=== PATIENT | male | born 1945 | race Caucasian/White ===

== ENCOUNTER 2016-08-25 06:37 | Day surgery (SDC) | payer OTHER ==
--- NOTE | 2016-08-24 13:16 | MH ---
cc: NYASIA JO ROHIT K. M.D. GOTTLIEB, DANIEL BARTHOLOMEW, BETH A. MD DATE OF ADMISSION: 08/25/2016 ADMISSION DIAGNOSIS Low back pain with a lumbar stenosis and neurogenic claudication symptoms. HISTORY OF PRESENT ILLNESS This is a 70-year-old male who presented to us for an evaluation of leg pain. He states he has chronic back pain since the . He states in 2000 he fell off a ladder someone knocked out from under him. He had a fusion in 2003 and states that the screws had to be removed four months later. He states he was doing well up until about a year ago. He states since then he cannot walk 50 feet without his legs feeling like they are going to give out on him. He states the pain starts in the first toe bilaterally, moves up the teixeira, lateral thighs to the hips and back. He states he cannot stand for 10-15 minutes before he has to rest. He states his whole back hurts, but he can live with this type pain but the legs are the most bothersome to him. He denies any paresthesias in the lower extremities. He denies any bowel or bladder incontinence. PAST MEDICAL HISTORY Significant for - 1. Diabetes mellitus. 2. COPD. 3. Sleep apnea with C-PAP use. 4. Coronary artery disease. 5. Pacemaker placement. 6. Hypertension 7. Prostate cancer. 8. Kidney disease. 9. Depression. CURRENT MEDICATIONS 1. Lisinopril 40 mg p.o. daily. 2. Hydralazine 50 mg p.o. daily. 3. Metoprolol 100 mg p.o. daily. 4. Atorvastatin 40 mg p.o. daily. 5. Sertraline 50 mg p.o. daily. 6. Symbicort 160. 7. Ventolin inhaler. 8. Fluticasone. 9. Aspirin 325 mg. ALLERGIES She has no known drug allergies. FAMILY HISTORY He states his mother and father are both . SOCIAL HISTORY He does not have children. He lives alone. He smokes five to six cigarettes a day. He drinks very rarely alcohol. REVIEW OF SYSTEMS CONSTITUTIONAL: He denies any fever or chills. EARS, NOSE AND THROAT: No pharyngitis, exudates or bloody drainage from his nose. CARDIOVASCULAR: No chest pain or palpitations. RESPIRATORY: No cough. Positive for shortness of breath. GENITOURINARY: No dysuria or hematuria. MUSCULOSKELETAL: Positive for low back pain and leg pain with difficult walking. SKIN: No rashes or pruritus. NEUROLOGIC: No difficulty with speech. Positive for difficulty with memory. GASTROINTESTINAL: No nausea, vomiting or abdominal pain. PSYCHIATRIC: No anxiety. Positive for depression symptoms. ENDOCRINE: No polyuria or polydipsia. HEMATOLOGIC: Positive for bruising but no bleeding tendencies. PHYSICAL EXAMINATION HEAD: Normocephalic, atraumatic. NECK: Supple. No carotid bruits heard on auscultation. LUNGS: Clear to auscultation bilaterally. HEART: Regular rate and rhythm. Normal S1, S2. ABDOMEN: Soft, nontender. Positive bowel sounds. SKIN: No cyanosis or erythema. He has a well-healed anterior neck incision. MUSCULOSKELETAL: He has 5/5 strength in the lower extremities. He ambulates without any assistive device. He has stiffness getting up from a sitting position and starting his ambulatory stride. NEUROLOGIC: He is awake, alert and oriented. Cranial nerves II through XII appear grossly intact. His speech is full and comprehension is good. Sensation is intact in the upper and lower extremities. He has brisk reflexes in the lower extremities. DATA REVIEWED A plain CT scan of the lumbar spine from 06/30/2016: He has L3/L4 and L4/L5 allograft interbody spacer which does not appear to have fused and has associated pseudoarthrosis. There is removed pedicle screw defects also noted. He has multilevel facet arthropathy along with degenerative scoliosis. He has a heavily calcified aorta also. IMPRESSION A 70-year-old male with a chronic history of low back pain with associated severe neurogenic claudication symptoms. He cannot walk more than 50 feet without experiencing severe pain and cramps and then subsequent subjective weakness in his legs. His symptoms do improve if he rests for 5 minutes each time. He has had extensive lower extremity revascularization procedures including stents he informs us and his vascular surgeon does not feel that his symptoms are related to vascular claudication. He has a history of anterior cervical fusion 20 years ago and has a failed two-level lumbar fusion at the L3/L4 and L4/L5 level with subsequent instrumentation removal. PLAN We have recommended a complete spine myelogram with post-myelogram CT to further evaluate for spinal stenosis and associated degenerative changes given that he cannot have an MRI scan because of the cardiac pacemaker. The patient will subsequently follow up with us for further discussion upon the treatment options and recommendations. The patient agrees with the treatment plan and he was therefore scheduled accordingly. Dictated by: Robert Paris PA-C MD LEN Thakkar/RICCARDO /12:49 PM /1:02 PM
[~2016-08-25] VITALS: Ht 172.7 cm; Wt 103.6 kg
[~2016-08-25 06:37] MED LIST: ASPI1TAB69 PO; ATOR40TA16 PO; FLUT50SP EACH NARE; HYDR50TA15 PO; LISI40TA PO; METO100T9 PO; SERT-132 PO; SYMB160A INH; VENTAER INH
[2016-08-25 07:08] VITALS: BP 150/79; PULSE 66; RESP 20; TEMP 97.8; O2SAT 90
[2016-08-25] MEDS ORDERED: LACTATED RINGER'S 1000 ML INJ 1,000 ML IV SCH ×2 (08:00→10:42)
[2016-08-25] MEDS ORDERED: DIAZEPAM 5 MG TAB PO SCH (08:00)
[2016-08-25 08:49] LABS: AUTOMATED NEUTROPHIL # 8.2 TH/MM3 (1.8-7.7); BASOPHIL # 0.1 TH/MM3 (0-0.2); BASOPHIL % 0.6 % (0.0-2.0); EOSINOPHIL # 0.3 TH/MM3 (0-0.4); EOSINOPHIL % 3.1 % (0.0-4.0); HEMATOCRIT 43.4 % (39.0-51.0); HEMO FLAGS DIFF FINAL; LYMPH % 9.8 % (9.0-44.0); MEAN CELL VOLUME 88.3 FL (80.0-100.0); MEAN CORPUSCULAR HEMOGLOBIN 29.8 PG (27.0-34.0); MEAN CORPUSCULAR HGB CONC 33.7 % (32.0-36.0); MONO % 8.9 % (0.0-8.0); NEUT % 77.6 % (16.0-70.0); PLATELET COUNT 142 TH/MM3 (150-450); RED BLOOD COUNT 4.91 MIL/MM3 (4.50-5.90); RED CELL DISTRIBUTION WIDTH 15.5 % (11.6-17.2); WHITE BLOOD COUNT 10.5 TH/MM3 (4.0-11.0)
[2016-08-25 08:57] LABS: APTT (PATIENT) 28.9 SEC (24.3-30.1); PROTHROMBIN TIME - PATIENT 10.8 SEC (9.8-11.6)
[2016-08-25 09:06] LABS: BICARBONATE 28.8 MEQ/L (21.0-32.0); POTASSIUM 3.9 MEQ/L (3.5-5.1)
[2016-08-25] MEDS ORDERED: IOHEXOL 300 MG/ML 50 ML BTL (for RAD DIAG) ONE (10:26)
[2016-08-25] MEDS ORDERED: SODIUM CHLOR 0.9% 1000 ML INJ 1,000 ML IV PRN (10:42)
[2016-08-25] MEDS ORDERED: oxyCODONE/ACETAMINOPHEN 5 MG/325 MG TAB PO PRN (10:45)
[2016-08-25] MEDS ORDERED: ONDANSETRON HCL 4 MG/2 ML VIAL IV PRN (10:45)
[2016-08-25] MEDS ORDERED: MORPHINE SULFATE 4 MG/ML INJ IM PRN (10:45)
[2016-08-25] MEDS ORDERED: ACETAMINOPHEN 325 MG TAB PO PRN (10:45)
--- NOTE | 2016-08-25 10:46 | PD.RAD ---
Post Procedure Progress Note Pre Procedure Diagnosis: (1) Postlaminectomy syndrome, lumbar (2) Low back pain (3) Numbness and tingling of both legs Post Procedure Diagnosis: (1) Low back pain (2) Postlaminectomy syndrome, lumbar (3) Numbness and tingling of both legs Procedure Date: Aug 25, 2016 Supervising Radiologist: Stoney Bazan Proceduralist/Assist: Elisa Smith RT(R), RT Leta(R)() Anesthesia: Local Plan of Activity Patient to Unit: [facility] Patient Condition: Good See PACS Report for procedural detail/treatment Spinal Procedure Myelogram (Complete) L3 Puncture Time: 10:25 Findings: Anterior fixation cervical spine. Stoney Bazan MD Aug 25, 2016 10:46
[2016-08-25 11:20] VITALS: BP 180/75; PULSE 60; RESP 18; TEMP 98.4; O2SAT 90
--- NOTE | 2016-08-25 12:11 | RADRPT ---
EXAM DATE/TIME: 08/25/2016 10:58 [facility] COMPARISON: No previous studies available for comparison. INDICATIONS : Post myelogram, spinal stenosis RADIATION DOSE: 28.54 CTDIvol (mGy) CT of thecervical spine was performed post myelogram. MEDICAL HISTORY : None SURGICAL HISTORY : cervical fusion ENCOUNTER: Initial ACUITY: 1 day PAIN SCALE: 3/10 LOCATION: neck TECHNIQUE: Volumetric scanning of the cervical spine was performed. Multiplanar reconstructions in the sagittal, coronal and oblique axial planes were performed. Using automated exposure control and adjustment o f the mA and/or kV according to patient size, radiation dose was kept as low as reasonably achievable to obtain optimal diagnostic quality images. FINDINGS: VERTEBRAE: No fracture is identified. The anterior plate and screws are present at C3-C5 and these levels demons trate osseous fusion as does the C5-C6 level. ALIGNMENT: There is 2 mm of anterolisthesis of C2 on C3 and 3 mm of anterolisthesis of C7 on T1. Craniocervical junction demonstrates no acute finding. There is joint space there are osteophytes at the atlantodens interval. C2-C3: There is bilateral facet arthrosis, right greater than left with small left uncovertebral osteophyte and minimal posterior disc osteophyte complex. There is no spinal canal stenosis or significant neura l foraminal narrowing appreciated. C3-C4: There is osseous fusion between the vertebral bodies with anterior hardware present. There is a right paracentral uncovertebral region osteophyte that severely narrows and obstructs the right neural for amen. There is mild posterior osteophytic ridging but no significant canal stenosis or left neural fo raminal narrowing is present. C4-C5: There is mild facet arthrosis, left greater than right. Osseous fusion is present between the vertebr al bodies. There is a moderate size left uncovertebral osteophyte that moderate to severely narrows t he left neural foramen. No canal stenosis or right neural foraminal stenosis is present. C5-C6: There is osseous fusion between the vertebral bodies with mild posterior osteophytic ridging in a sonny tral left paracentral location. There is a left uncovertebral osteophyte that mildly narrows the left neural foramen. No canal stenosis or right neural foraminal narrowing is present. C6-C7: There is decreased disc height with endplate sclerosis and osteophytes anteriorly. There is moderate size diffuse posterior disc osteophyte complex abuts the spinal cord with loss of CSF signal anterior to the cord. This results in mild canal stenosis. There are also bilateral uncovertebral osteophytes that moderately narrow the neural foramina bilaterally. C7-T1: There is bilateral facet arthrosis with minimal anterolisthesis. No disc herniation, canal stenosis, or neural foraminal narrowing is appreciated. The visualized surrounding structures demonstrate no acute finding. CONCLUSION: 1. Prior ACDF at C3-C5. There is osseous fusion between the C3-C6 vertebral bodies. 2. There is severe degenerative disc disease at C6-C7 with posterior disc osteophyte complex causing mild spinal canal stenosis and uncovertebral osteophytes causing moderate to severe bilateral neural foraminal narrowing. 3. There is severe right neural foraminal stenosis at C3-C4 secondary to an osteophyte. Please see ab ove for detailed description of each level. Willy Myers MD on August 25, 2016 at 12:02 Board Certified Radiologist. This report was verified electronically.
[2016-08-25 13:00] VITALS: BP 178/77; PULSE 60; RESP 18; O2SAT 95
--- NOTE | 2016-08-25 13:55 | RADRPT ---
EXAM DATE/TIME: 08/25/2016 11:04 [facility] COMPARISON: No previous studies available for comparison. INDICATIONS : Post myelogram, spinal stenosis RADIATION DOSE: 38.36 CTDIvol (mGy) ; Combined studies - Thoracic Spine/Lumbar Spine CT of thethoracic spine was performed post myelogram. MEDICAL HISTORY : None SURGICAL HISTORY : cervical and lumbar surgery ENCOUNTER: Initial ACUITY: 1 day PAIN SCALE: 5/10 LOCATION: back TECHNIQUE: Volumetric scanning of the thoracic spine was performed. Multiplanar reconstructions in the sagittal , coronal and oblique axial planes were performed. Using automated exposure control and adjustment o f the mA and/or kV according to patient size, radiation dose was kept as low as reasonably achievable to obtain optimal diagnostic quality images. FINDINGS: No fracture or compression deformity is present. There is no anterolisthesis or retrolisthesis. There are endplate osteophytes anteriorly at multiple levels. There is subtle rightward convex curvature. T1-T2: No disc herniation, canal stenosis, or neural foraminal stenosis. T2-T3: No disc herniation, canal stenosis, or neural foraminal stenosis. T3-T4: No disc herniation, canal stenosis, or neural foraminal stenosis. There is a small right paracentral osteophyte. T4-T5: No disc herniation, canal stenosis, or neural foraminal stenosis. T5-T6: No disc herniation, canal stenosis, or neural foraminal stenosis. T6-T7: No disc herniation, canal stenosis, or neural foraminal stenosis. T7-T8: There is a small left paracentral disc protrusion. No spinal canal stenosis or neural foraminal narro wing is present. T8-T9: No disc herniation, canal stenosis, or neural foraminal stenosis. T9-T10: No disc herniation, canal stenosis, or neural foraminal stenosis. T10-T11: No disc herniation, canal stenosis, or neural foraminal stenosis. T11-T12: No disc herniation, canal stenosis, or neural foraminal stenosis. T12-L1: No disc herniation, canal stenosis, or neural foraminal stenosis. The visualized paraspinous structures demonstrate no acute finding. There is severe atherosclerotic d isease of the aorta. Emphysematous changes are present at the lung apices. CONCLUSION: Mild degenerative changes throughout the thoracic spine with mild rightward convex curvature. However , no significant spinal canal stenosis or neural foraminal narrowing is present. Willy Myers MD on August 25, 2016 at 13:48 Board Certified Radiologist. This report was verified electronically.
--- NOTE | 2016-08-25 14:00 | RADRPT ---
EXAM DATE/TIME: 08/25/2016 11:04 [facility] COMPARISON: No previous studies available for comparison. INDICATIONS : Post myelogram, spinal stenosis RADIATION DOSE: 35.38 CTDIvol (mGy) ; Combined studies - Thoracic Spine/Lumbar Spine CT of thelumbar spine was performed post myelogram. MEDICAL HISTORY : None SURGICAL HISTORY : cervical, lumbar surgeries ENCOUNTER: Initial ACUITY: 1 day PAIN SCALE: 5/10 LOCATION: low back TECHNIQUE: Volumetric scanning of the lumbar spine was performed. Multiplanar reconstructions in the sagittal, coronal and oblique axial planes were performed. Using automated exposure control and adjustment of the mA and/or kV according to patient size, radiation dose was kept as low as reasonably achievable t o obtain optimal diagnostic quality images. FINDINGS: VERTEBRAE: Vertebral body height is maintained. ALIGNMENT: There is no anterolisthesis or retrolisthesis. T12-L1: No disc herniation, canal stenosis, or neural foraminal stenosis. L1-L2: There is a mild diffuse disc bulge with moderate facet hypertrophy, left greater than right. No spina l canal stenosis or significant neural foraminal narrowing is present. L2-L3: There is a diffuse disc bulge with moderate facet and ligamentum flavum hypertrophy. However, there i s no significant spinal canal stenosis or neural foraminal narrowing. Right lateral recess is mildly effaced. L3-L4: There is an area of high density material in the right disc space. Disc height is decreased and there is severe facet hypertrophy. No spinal canal stenosis is identified. There is mild left and moderate right neural foraminal stenosis. L4-L5: There is high density material in the right aspect of the disc base. Severe facet hypertrophy is pres ent and there is effacement of the right lateral recess. No significant spinal canal stenosis is pres ent. There is moderate left and severe right neuroforaminal stenosis. L5-S1: No disc herniation, canal stenosis, or neural foraminal stenosis. There is mild facet hypertrophy. The visualized paraspinous structures demonstrate no acute finding. There is severe atherosclerotic d isease of the aorta. CONCLUSION: 1. Mild levoscoliosis with multilevel degenerative disc disease. No spinal canal stenosis is identifi ed. There is neural foraminal narrowing, most severe on the right at L3-L4 and L4-L5. Please see abokeon lucas for detailed description of each level. 2. There is severe atherosclerotic disease of aorta. Willy Myers MD on August 25, 2016 at 13:53 Board Certified Radiologist. This report was verified electronically.
--- NOTE | 2016-08-26 12:27 | RADRPT ---
EXAM DATE/TIME: 08/25/2016 10:28 [facility] COMPARISON: No previous studies available for comparison. INDICATIONS : Patient with leg pain and weakness in need of myelogram. MEDICAL HISTORY : Diabetes COPD Sleep apnea with C-PAP use CAD HTN Kidney disease Depression Hx of prostate cancer SURGICAL HISTORY : Anterior cervical fusion Lumbar fusion Pacemaker AAA repair Appendectomy Ruptured bowl repair with partial bladder resection CABG Extensive lower extremity revascularization procedures w/stents Prostate freeze ENCOUNTER: Initial ACUITY: > 1 year PAIN SCORE: 8/10 LOCATION: Lower back and both legs LUMBAR PUNCTURE TIME: 1025 hours FLUORO TIME: 2.25 minutes IMAGE SERIES: 0 CONTRAST: 15 cc Omnipaque (iohexol) 300 ACCESS LEVEL: L3-4 PROCEDURE : 1. Fluoroscopic guided lumbar puncture. 2. Instillation of intrathecal contrast. 3. Total spinal axis myelogram. The risks, benefits and alternatives to the procedure were explained and verbal and written consent w as obtained. The site was prepped in sterile fashion. Full sterile technique was used, including ca p, mask, sterile gloves and gown and a large sterile sheet. Hand hygiene and 2% chlorhexidine and/or betadine/alcohol prep was utilized per protocol for cutaneous antisepsis. The skin and subcutaneous tissues were infiltrated with local anesthetic solution. With fluoroscopic guidance the lumbar thecal sac was punctured at level above and a diagnostic quanti ty of contrast is present in the subarachnoid space. Following the lumbar radiographs contrast was r un cephalad and radiographs were obtained of the thoracic spine. Under fluoroscopic guidance contras t was placed in the cervical region and radiographs were obtained of the cervical region. The patient tolerated procedure well and there were no complications. CT scan is to be performed for further evaluation. CONCLUSION: Uncomplicated total axis myelogram as above. CT scan is to be performed for further evaluation. Stoney Bazan MD on August 26, 2016 at 12:25 Board Certified Radiologist. This report was verified electronically.
== END 2016-08-25 13:17 | disposition home or self-care (01) ==
LOC: HROP 06:37 → HRIP 06:46 → HROP 13:17
PROVIDERS: ATTEND Neurological Surgery
DX: M54.5 Low back pain (principal); M48.06 Spinal stenosis, lumbar region; E11.9 Type 2 diabetes mellitus without complications; J44.9 Chronic obstructive pulmonary disease, unspecified; G47.30 Sleep apnea, unspecified; I25.10 Atherosclerotic heart disease of native coronary artery without angina pectoris; I10 Essential (primary) hypertension; N28.9 Disorder of kidney and ureter, unspecified; C61 Malignant neoplasm of prostate; M96.1 Postlaminectomy syndrome, not elsewhere classified; R20.2 Paresthesia of skin; R20.0 Anesthesia of skin; R53.1 Weakness; I70.0 Atherosclerosis of aorta; M51.36 Other intervertebral disc degeneration, lumbar region; M25.78 Osteophyte, vertebrae; M50.323 Other cervical disc degeneration at C6-C7 level; M48.02 Spinal stenosis, cervical region
CPT/HCPCS: 62305; 72125; 72128; 72131; 80048; 85025; 85610; 85730; J7120; Q9967; 77003